=== PATIENT | female | born 1975 ===

== ENCOUNTER 2017-10-26 12:32 | Emergency (ER) | payer MEDICAID ==
[2017-10-26 12:32] VITALS: BMI 24.7
[2017-10-26 12:41] VITALS: BP 114/76; PULSE 67; RESP 18; TEMP 97.6; O2SAT 100
[2017-10-26] MEDS ORDERED: Alum-Mag Hydrox-Simethicone Susp (30 mL) PO STA (14:36)
--- NOTE | 2017-10-26 14:38 | C.PDOC ---
History Of Present Illness 42 y/o female presents to the ER complaining of abdominal pain, nausea, vomiting , and diarrhea which has been present since yesterday. Patient states that the symptoms began after she ate pizza. Patient reports that the vomiting resolved last night. She notes that she had 2-3 loose stools. Time Seen by Provider: 10/26/17 14:26 Chief Complaint (Nursing): Abdominal Pain History Per: Patient History/Exam Limitations: no limitations Onset/Duration Of Symptoms: Days Current Symptoms Are (Timing): Still Present Severity: Moderate Associated Symptoms: Nausea, Diarrhea. denies: Fever, Chills Past Medical History Reviewed: Historical Data, Nursing Documentation, Vital Signs Vital Signs: Last Vital Signs Temp 97.6 F 10/26/17 12:37 Pulse 67 10/26/17 12:37 Resp 18 10/26/17 12:37 BP 114/76 10/26/17 12:37 Pulse Ox 100 10/26/17 16:36 - Medical History PMH: Gastritis Other Surgeries: Hx of surgeries Family History: States: No Known Family Hx - Social History Hx Tobacco Use: No Hx Alcohol Use: No Hx Substance Use: No - Immunization History Hx Tetanus Toxoid Vaccination: No Hx Influenza Vaccination: No Hx Pneumococcal Vaccination: No Review Of Systems Except As Marked, All Systems Reviewed And Found Negative. Constitutional: Negative for: Fever, Chills Gastrointestinal: Positive for: Nausea, Abdominal Pain, Diarrhea Genitourinary: Negative for: Dysuria, Hematuria Physical Exam - Physical Exam Appears: Non-toxic, No Acute Distress Skin: Normal Color, Warm, Dry Head: Atraumatic, Normacephalic Eye(s): bilateral: Normal Inspection Nose: Normal Oral Mucosa: Moist Neck: Supple Chest: Symmetrical Cardiovascular: Rhythm Regular Respiratory: Normal Breath Sounds, No Rales, No Rhonchi, No Wheezing Gastrointestinal/Abdominal: Normal Exam, Soft, No Tenderness Neurological/Psych: Oriented x3, Normal Speech ED Course And Treatment O2 Sat by Pulse Oximetry: 100 (RA) Pulse Ox Interpretation: Normal Progress Note: Patient given Maalox PO and Pepcid PO. Medical Decision Making Medical Decision Making: gastroenteritis since yesterday- suspect high-risk pizza no vomiting today- taking normal PO belly benign VS's wnl Educated on BRAT diet and Gatorade. Disposition Doctor Will See Patient In The: Office Counseled Patient/Family Regarding: Studies Performed, Diagnosis - Disposition Referrals: [facility] [Outside] Disposition: HOME/ ROUTINE Disposition Time: 14:38 Condition: GOOD Additional Instructions: sigue dieta blanda 2 velasco mas Pepcid 20 mg en la noche para bajar el acides del estomago Maalox 30 cc (Jennifer Cucharada) cada 2-3 horas elisha necessario Ailyn muchos liquidos/Gatorade elisha quiere Sigue en la [facility] (gratis) elisha necessario. Instructions: Gastroenteritis (DC) Forms: [employer] (Luxembourgish) Print Language: KYRGYZ - Clinical Impression Clinical Impression: Gastroenteritis - Scribe Statement The provider has reviewed the documentation as recorded by the Scribe Frank Cheema Provider Attestation: All medical record entries made by the Scribe were at my direction and personally dictated by me. I have reviewed the chart and agree that the record accurately reflects my personal performance of the history, physical exam, medical decision making, and the department course for this patient. I have also personally directed, reviewed, and agree with the discharge instructions and disposition.
[2017-10-26 14:39] LABS: SQUAMOUS EPITHIAL < 1 /hpf (0-5); URINE BILIRUBIN NEGATIVE (NEGATIVE); URINE BLOOD NEGATIVE (NEGATIVE); URINE CLARITY Clear (Clear); URINE COLOR Straw (YELLOW); URINE GLUCOSE (UA) NORMAL (Normal); URINE LEUKOCYTE ESTERASE NEG Leu/uL (Negative); URINE PROTEIN NEGATIVE (NEGATIVE); URINE UROBILINOGEN NORMAL mg/dL (0.2-1.0)
[2017-10-26 14:43] LABS: HCG,QUALITATIVE URINE NEGATIVE (NEGATIVE)
[2017-10-26] MEDS ORDERED: Alum-Mag Hydrox-Simethicone Susp (30 mL) ONE (14:45)
== END 2017-10-26 15:29 | disposition home or self-care (01) ==
LOC: C.ER 12:32
DX: K52.9 Noninfective gastroenteritis and colitis, unspecified (principal)

== ENCOUNTER 2018-04-17 11:20 | Emergency (ER) | payer MEDICAID ==
[2018-04-17 11:24] VITALS: BMI 25.6
[2018-04-17 11:29] VITALS: BP 107/75; PULSE 79; RESP 18; TEMP 99.2; O2SAT 98
[2018-04-17] MEDS ORDERED: Lidocaine 5% Oint(35 gm) TOP STA (12:07)
--- NOTE | 2018-04-17 12:55 | C.PDOC ---
History Of Present Illness 42-year-old female, presents to the emergency department with complaints of hemorrhoids. Patient states she was taking Preparation H with no relief, prompting visit. She denies any constipation, fever, bleeding with bowel movement, or any other associated symptoms. No other complaints at this time. Time Seen by Provider: 04/17/18 11:46 Chief Complaint (Nursing): GI Problem History Per: Patient History/Exam Limitations: no limitations Current Symptoms Are (Timing): Still Present Past Medical History Reviewed: Historical Data, Nursing Documentation, Vital Signs Vital Signs: Last Vital Signs Temp 99.2 F 04/17/18 11:24 Pulse 79 04/17/18 11:24 Resp 18 04/17/18 11:24 BP 107/75 04/17/18 11:24 Pulse Ox 98 04/17/18 11:24 - Medical History PMH: Gastritis Family History: States: No Known Family Hx - Social History Hx Tobacco Use: No Hx Alcohol Use: No Hx Substance Use: No - Immunization History Hx Tetanus Toxoid Vaccination: No Hx Influenza Vaccination: No Hx Pneumococcal Vaccination: No Review Of Systems Constitutional: Negative for: Fever Gastrointestinal: Negative for: Nausea, Vomiting, Diarrhea, Constipation, Hematochezia Physical Exam - Physical Exam Appears: Non-toxic, No Acute Distress Skin: Warm, Dry, No Rash Head: Atraumatic, Normacephalic Eye(s): bilateral: Normal Inspection Nose: Normal Oral Mucosa: Moist Lips: Normal Appearing Neck: Normal ROM Chest: Symmetrical Cardiovascular: Rhythm Regular, No Murmur Respiratory: Normal Breath Sounds, No Accessory Muscle Use Gastrointestinal/Abdominal: Soft, No Tenderness Rectal: Hemorrhoids (non-thrombosed, two hemorrhoids. No bleeding.) Extremity: Normal ROM, No Deformity Neurological/Psych: Oriented x3, Normal Speech ED Course And Treatment O2 Sat by Pulse Oximetry: 98 Pulse Ox Interpretation: Normal (RA) Medical Decision Making Medical Decision Making: Plan: * Lidocaine * Reassess and Disposition Disposition - Disposition Referrals: Munira Bolden MD [Staff Provider] - Disposition: HOME/ ROUTINE Disposition Time: 12:52 Condition: STABLE Additional Instructions: Follow up with General data modeling specialist within 2-3 days. Return to ED if feel worse. Prescriptions: Lidocaine 4% [Lidocaine 4% 50 ml Topical (or)] 1 appl TOP Q6 #1 bottle Hydrocortisone-Pramoxine 1%-1% [Proctofoam-Hc 1%-1%] 1 appl TP 5XD #1 aer Instructions: Hemorrhoid Banding Forms: [facility] (Thai) Print Language: FAROESE - Clinical Impression Clinical Impression: Hemorrhoids - Scribe Statement The provider has reviewed the documentation as recorded by the Scribe (Jarred Carrillo) All medical record entries made by the Scribe were at my direction and personally dictated by me. I have reviewed the chart and agree that the record accurately reflects my personal performance of the history, physical exam, medical decision making, and the department course for this patient. I have also personally directed, reviewed, and agree with the discharge instructions and disposition.
== END 2018-04-17 13:07 | disposition home or self-care (01) ==
LOC: C.ER 11:20
DX: K64.9 Unspecified hemorrhoids (principal)